=== PATIENT | female | born 1995 | race Caucasian/White ===

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

== ENCOUNTER 2018-07-08 05:34 | Emergency (ER) | payer OTHER ==
--- NOTE | 2018-07-08 05:52 | PDOC ---
History of Present Illness - General Stated Complaint: TOOTHACHE Time Seen by Provider: 07/08/18 05:38 History Source: Patient Exam Limitations: No Limitations - History of Present Illness Initial Comments: 07/08/18 05:46 Best Contact: [place]/mother [phone] PCP:Dr. bean Pmhx:Sz/last episode 2005 Pshx:2015/appendectomy Allergies: NKDA FH:0 Social Hx: Cigarettes/ 0 Alcohol/ 0 Drugs/0 LMP: 06/21/2017 23-year-old female presents to the ER with her mother complaining of a toothache to the left lower second molar/#183 hours. Patient took Tylenol with minimal relief. Patient denies facial pain, trismus, difficulty swallowing, difficulty speaking, drooling. Pain is exacerbated on touch and cold fluids. Past History - Past Medical History Allergies/Adverse Reactions: Allergies Allergy/AdvReac Type Severity Reaction Status Date / Time No Known Allergies Allergy Verified 10/14/16 22:56 Home Medications: Ambulatory Orders Carbamazepine 400 mg PO HS 03/15/14 Multivitamins [Multivit ([facility] Formulary)] 1 tab PO DAILY 03/15/14 Acetaminophen W/ Codeine #3 [Tylenol # 3 -] 1 tab PO Q6H #10 tablet MDD 3 Amoxicillin - [Amoxicillin 500mg Capsule -] 500 mg PO TID #21 capsule 07/08/18 Seizures: Yes - Surgical History Appendectomy: Yes - Immunization History Immunization Up to Date: Yes - Suicide/Smoking/Psychosocial Hx Smoking History: Never smoked Have you smoked in the past 12 months: No Hx Alcohol Use: No Drug/Substance Use Hx: No Substance Use Type: None Review of Systems - Review of Systems Able to Perform ROS?: Yes Comments:: 07/08/18 05:54 CONSTITUTIONAL: Absent: fever, chills, diaphoresis, generalized weakness, malaise, loss of appetite HEENT: LEFT LOWER MOLAR #18 TOOTHACHE Absent: rhinorrhea, nasal congestion, throat pain, throat swelling, difficulty swallowing, mouth swelling, ear pain, eye pain, visual Changes CARDIOVASCULAR: Absent: chest pain, loss of consciousness, palpitations, irregular heart rate, peripheral edema Is the patient limited Sami proficient: No *Physical Exam - Physical Exam Comments: 07/08/18 05:55 GENERAL: Well developed, well nourished. Awake and alert. No acute distress. HEENT: +left lower molar #18 pain on percussion Normocephalic, atraumatic. PERRLA, EOMI. No conjunctival pallor. Sclera are non- icteric. Moist mucous membranes. Oropharynx is clear. NECK: Supple. Full ROM. No JVD. Carotid pulses 2+ and symmetric, without bruits. No thyromegaly. No lymphadenopathy. SKIN: Warm and dry. Normal capillary refill. No rashes. No jaundice. *DC/Admit/Observation/Transfer Diagnosis at time of Disposition: Toothache - Discharge Dispostion Disposition: HOME Condition at time of disposition: Stable Decision to Admit order: No - Prescriptions Prescriptions: Acetaminophen W/ Codeine #3 [Tylenol # 3 -] 1 tab PO Q6H #10 tablet MDD 3 Amoxicillin - [Amoxicillin 500mg Capsule -] 500 mg PO TID #21 capsule - Referrals - Patient Instructions Printed Discharge Instructions: DI for Tooth Decay Additional Instructions: Take tylenol alternating with Motrin as needed for pain Follow up with your dentist this week Antibiotics as prescribed until completion Return to the ER for severe/persistent/worsening symptoms DO NOT TAKE TYLENOL WHEN YOU TAKE TYLENOL #3 Follow up with the dentist [facility] [phone] [place]: [phone] Tuesday through Tuesday: 4 PM to 9 PM Tuesday and Tuesday 9 AM to 5 PM - Post Discharge Activity
[2018-07-08 05:56] VITALS: BP 115/89; PULSE 74; TEMP 98.1; BMI 50.1
== END 2018-07-08 05:59 | disposition home or self-care (01) ==
LOC: JER 05:34
DX: K02.9 Dental caries, unspecified (principal); Z86.69 Personal history of other diseases of the nervous system and sense organs
CPT/HCPCS: 99281-25

== ENCOUNTER 2018-07-25 18:52 | Emergency (ER) | payer OTHER ==
--- NOTE | 2018-07-25 18:58 | PDOC ---
Rapid Medical Evaluation Time Seen by Provider: 07/25/18 18:57 Medical Evaluation: Allergies Allergy/AdvReac Type Severity Reaction Status Date / Time No Known Allergies Allergy Verified 07/25/18 18:54 07/25/18 18:57 Pt presents to the ED for two weeks of cough, runny nose, and ear pain. Exam: Lungs CTAB, (+) rhinorrhea Orders: Nothing Pt to proceed to ED for further evaluation Discharge Disposition - Diagnosis Cough - Referrals - Patient Instructions - Post Discharge Activity
[2018-07-25 19:05] VITALS: BP 107/65; PULSE 76; TEMP 97.9; BMI 23.6
--- NOTE | 2018-07-25 20:29 | PDOC ---
History of Present Illness - General Chief Complaint: Cold Symptoms Stated Complaint: COUGH Time Seen by Provider: 07/25/18 18:57 - History of Present Illness Initial Comments: 07/25/18 20:27 23-year-old female with cough times 1 week Past History - Past Medical History Allergies/Adverse Reactions: Allergies Allergy/AdvReac Type Severity Reaction Status Date / Time No Known Allergies Allergy Verified 07/25/18 18:54 Home Medications: Ambulatory Orders Carbamazepine 400 mg PO HS 03/15/14 Multivitamins [Multivit ([facility] Formulary)] 1 tab PO DAILY 03/15/14 Acetaminophen W/ Codeine #3 [Tylenol # 3 -] 1 tab PO Q6H #10 tablet MDD 3 Amoxicillin - [Amoxicillin 500mg Capsule -] 500 mg PO TID #21 capsule 07/08/18 COPD: No Seizures: Yes - Surgical History Appendectomy: Yes - Immunization History Immunization Up to Date: Yes - Suicide/Smoking/Psychosocial Hx Smoking History: Never smoked Have you smoked in the past 12 months: No Hx Alcohol Use: No Drug/Substance Use Hx: No Substance Use Type: None Review of Systems - Review of Systems Constitutional: No: Fever Respiratory: Yes: Cough *Physical Exam - Vital Signs Last Vital Signs Temp Pulse Resp BP Pulse Ox 97.9 F 76 16 107/65 99 07/25/18 18:54 07/25/18 18:54 07/25/18 18:54 07/25/18 18:54 07/25/18 18:54 - Physical Exam Comments: 07/25/18 20:28 HEAD: NC/AT EYES: Conjuntiva clear Ears: Canals and TM's normal NOSE: No d/c THROAT: Moist mucous membrances, oral pharanx clear, uvula midline NECK: Supple without adenopathy CARDIAC: S1 S2 LUNGS: CTA Full and Equal breath sounds ABDOMEN: Soft NT ND MS: Full ROM in all joints without edema NEUROLOGIC: No gross sensory or motor deficits, NVID SKIN: Normal color and temperature no lesions or rashes Moderate Sedation - Procedure Monitoring Vital Signs: Procedure Monitoring Vital Signs Temperature 97.9 F 07/25/18 18:54 Pulse Rate 76 07/25/18 18:54 Respiratory Rate 16 07/25/18 18:54 Blood Pressure 107/65 07/25/18 18:54 O2 Sat by Pulse Oximetry (%) 99 07/25/18 18:54 *DC/Admit/Observation/Transfer Diagnosis at time of Disposition: Cough, Upper respiratory infection - Discharge Dispostion Disposition: HOME Condition at time of disposition: Stable Decision to Admit order: No - Referrals Referrals: ON STAFF,NOT [Primary Care Provider] - - Patient Instructions Printed Discharge Instructions: DI for Viral Upper Respiratory Infection -- Adult Additional Instructions: Continue with Robitussin-DM as directed. Return to the emergency room should symptoms worsen or go unresolved. Follow-up with your primary care provider in one to 2 days for further evaluation and treatment options. - Post Discharge Activity
== END 2018-07-25 20:29 | disposition home or self-care (01) ==
LOC: JER 18:52 → JERFT 18:52
DX: J06.9 Acute upper respiratory infection, unspecified (principal); B97.89 Other viral agents as the cause of diseases classified elsewhere
CPT/HCPCS: 99281-25

== ENCOUNTER 2020-05-07 11:32 | Emergency (ER) | payer OTHER ==
[2020-05-07 11:48] VITALS: BP 107/60; PULSE 80; TEMP 98; BMI 24.5
== END 2020-05-07 13:21 | disposition home or self-care (01) ==
LOC: JERFT 11:32
DX: J34.89 Other specified disorders of nose and nasal sinuses (principal)
CPT/HCPCS: 99282-25

== ENCOUNTER 2020-08-25 11:19 | Emergency (ER) | payer OTHER ==
[2020-08-25 11:29] VITALS: BP 104/56; PULSE 82; TEMP 98.2; BMI 22.6
== END 2020-08-25 12:18 | disposition home or self-care (01) ==
LOC: JERFT 11:19
DX: H10.12 Acute atopic conjunctivitis, left eye (principal)
CPT/HCPCS: 99283-25

== ENCOUNTER 2022-04-22 20:25 | Emergency (ER) | payer OTHER ==
[2022-04-22 20:34] VITALS: BP 114/79; PULSE 107; RESP 18; TEMP 98.7; BMI 23.2
== END 2022-04-22 23:08 | disposition home or self-care (01) ==
LOC: JER 20:25
DX: B34.9 Viral infection, unspecified (principal)
CPT/HCPCS: 0241U-QW; 99283-25

== ENCOUNTER 2022-04-26 01:04 | Inpatient (IN) | payer OTHER ==
[2022-04-26] MEDS: ALBUTEROL SO4 2.5/IPRATROPIUM 0.5 INH SOL 3 ML VIAL.NEB. NEB SCH ×4 (03:00→03:45)
[2022-04-26 03:03] LABS: VENOUS BASE EXCESS 1.1 mmol/L (-2-2); VENOUS O2 SATURATION 61.7 % (70-80); VENOUS PCO2 45.2 mmHg (38-52); VENOUS PH 7.387 (7.310-7.410)
[2022-04-26 03:16] LABS: CALCIUM 8.8 mg/dL (8.5-10.1)
[2022-04-26 03:17] LABS: ALBUMIN 3.5 g/dl (3.4-5.0); BLOOD UREA NITROGEN 4.8 mg/dL (7-18)
[2022-04-26 03:18] LABS: BASO % 0.7 % (0-2.0); EOS % 4.7 % (0-4.5); HEMATOCRIT 38.8 % (32.4-45.2); HEMOGLOBIN 13.6 GM/dL (10.7-15.3); LYMPH % 14.5 % (8-40); MCH 32.9 pg (25.7-33.7); MCHC 35.1 g/dl (32.0-36.0); MEAN CELL VOLUME 93.8 fl (80-96); MEAN PLT VOLUME 7.8 fl (7.5-11.1); MONO % 12.9 % (3.8-10.2); NEUT % 67.2 % (42.8-82.8); PLATELET COUNT 375 10^3/uL (134-434); RBC 4.14 M/mm3 (3.60-5.2); RDW 12.9 % (11.6-15.6); WHITE BLOOD COUNT 7.3 K/mm3 (4.0-10.0)
[2022-04-26 03:20] LABS: CREATININE 0.5 mg/dL (0.55-1.3)
[2022-04-26 03:22] LABS: BILIRUBIN,TOTAL 0.2 mg/dL (0.2-1); TOT PROT 7.9 g/dl (6.4-8.2)
[2022-04-26] MEDS ORDERED: ACETAMINOPHEN 1000 MG/100 ML BAG IVPB ONE (04:04)
[2022-04-26] MEDS ORDERED: ACETAMINOPHEN INJECTION 100 ML IVPB ONE (04:05)
[2022-04-26] MEDS ORDERED: AZITHROMYCIN IVPB 500 MG in DEXTROSE 5%-WATER - 250 ML IVPB ONE (04:17)
[2022-04-26] MEDS ORDERED: CEFTRIAXONE 1,000 MG in DEXTROSE 5%-WATER - 50 ML IVPB ONE (04:17)
[2022-04-26] MEDS ORDERED: CEFTRIAXONE 1 GM/50 ML BAG ONE (04:24)
[2022-04-26] MEDS ORDERED: AZITHROMYCIN IVPB 500 MG/250 ML BAG IVPB ONE (05:18)
[2022-04-26] MEDS ORDERED: ONDANSETRON 4 MG/2 ML VIAL ONE (05:48)
[2022-04-26] MEDS ORDERED: ONDANSETRON 4 MG/2 ML VIAL IVPUSH ONE (05:52)
[2022-04-26] MEDS ORDERED: guaiFENesin 600 MG TABLET.ER (FP) PO PRN (06:17)
[2022-04-26 09:17] LABS: LACTIC ACID 2.9 mmol/L (0.4-2.0)
[2022-04-26] MEDS ORDERED: CEFTRIAXONE 1 GM in DEXTROSE 5%-WATER - 50 ML IVPB SCH (10:00)
[2022-04-26] MEDS: AZITHROMYCIN IVPB 500 MG/250 ML BAG IVPB SCH (10:38)
[2022-04-26] MEDS ORDERED: carBAMazepine 200 MG TABLET ONE (10:44)
[2022-04-26] MEDS ORDERED: ENOXAPARIN NA (PORCINE) 40 MG/0.4 ML DISP.SYRIN SQ ONE (10:45)
[2022-04-26] MEDS ORDERED: FOLIC ACID 1 MG TABLET (FP) ONE (10:45)
[2022-04-26] MEDS ORDERED: MULTIVITAMINS (DAILY MVI) TABLET (FP) ONE (10:45)
[2022-04-26] MEDS: MULTIVITAMINS (DAILY MVI) TABLET (FP) PO SCH (11:19)
[2022-04-26] MEDS: FOLIC ACID 1 MG TABLET (FP) PO SCH (11:19)
[2022-04-26] MEDS: ENOXAPARIN NA (PORCINE) 40 MG/0.4 ML DISP.SYRIN SQ SCH (11:19)
[2022-04-26] MEDS: carBAMazepine 100 MG TAB.CHEW PO SCH ×2 (11:40→21:25)
[2022-04-26] MEDS ORDERED: SODIUM CHLORIDE 1,000 ML IV STA (12:11)
[2022-04-26 15:28] LABS: EPI CELLS 14 /uL (0-25.1); HYALINE CASTS 0 /uL (0-3.1); URINE APPEARANCE CLOUDY; URINE BACTERIA 3003 /uL (0-1359); URINE BILIRUBIN NEGATIVE (NEGATIVE); URINE COLOR YELLOW; URINE GLUCOSE (UA) NEGATIVE (NEGATIVE); URINE KETONE NEGATIVE (NEGATIVE); URINE LEUK ESTERASE 3+ (NEGATIVE); URINE NITRITE NEGATIVE (NEGATIVE); URINE PROTEIN NEGATIVE (NEGATIVE); URINE RBC 5 /uL (0-23.9); URINE UROBILINOGEN 0.2 mg/dL (0.2-1.0); URINE WBC 42 /uL (0-25.8)
[2022-04-26 15:59] VITALS: BMI 25.4
[2022-04-26] MEDS: SODIUM CHLORIDE 1,000 ML IV SCH (16:24)
[2022-04-26] MEDS ORDERED: carBAMazepine 100 MG TAB.CHEW PO SCH (22:00)
[2022-04-27] MEDS: SODIUM CHLORIDE 1,000 ML IV SCH (03:29)
[2022-04-27] MEDS: FOLIC ACID 1 MG TABLET (FP) PO SCH (09:08)
[2022-04-27] MEDS: AZITHROMYCIN IVPB 500 MG/250 ML BAG IVPB SCH (09:08)
[2022-04-27] MEDS: MULTIVITAMINS (DAILY MVI) TABLET (FP) PO SCH (09:09)
[2022-04-27] MEDS: ENOXAPARIN NA (PORCINE) 40 MG/0.4 ML DISP.SYRIN SQ SCH (09:18)
[2022-04-27] MEDS: carBAMazepine 100 MG TAB.CHEW PO SCH ×2 (09:19→21:12)
[2022-04-27] MEDS ORDERED: CEFTRIAXONE 1 GM in DEXTROSE 5%-WATER - 50 ML IVPB SCH (09:53)
[2022-04-27 11:07] LABS: BASO % 0.7 % (0-2.0); EOS % 3.1 % (0-4.5); HEMATOCRIT 34.1 % (32.4-45.2); LYMPH % 16.2 % (8-40); MCH 35.1 pg (25.7-33.7); MCHC 35.2 g/dl (32.0-36.0); MEAN CELL VOLUME 99.6 fl (80-96); MEAN PLT VOLUME 8.1 fl (7.5-11.1); MONO % 11.9 % (3.8-10.2); NEUT % 68.1 % (42.8-82.8); PLATELET COUNT 354 10^3/uL (134-434); RBC 3.43 M/mm3 (3.60-5.2); RDW 12.8 % (11.6-15.6); WHITE BLOOD COUNT 5.5 K/mm3 (4.0-10.0)
[2022-04-27 11:37] LABS: CALCIUM 8.3 mg/dL (8.5-10.1)
[2022-04-27 11:38] LABS: BLOOD UREA NITROGEN 5.4 mg/dL (7-18)
[2022-04-27 11:40] LABS: PHOSPHOROUS 2.4 mg/dL (2.5-4.9)
[2022-04-27 11:42] LABS: TOT PROT 6.7 g/dl (6.4-8.2)
[2022-04-27 11:44] LABS: BILIRUBIN,TOTAL 0.4 mg/dL (0.2-1); CREATININE 0.5 mg/dL (0.55-1.3)
[2022-04-27] MEDS ORDERED: ONDANSETRON 4 MG/2 ML VIAL IVPUSH PRN (11:48)
[2022-04-27] MEDS: guaiFENesin/D-METHORPHAN HB 10 ML UNIT-DOSE CUPS PO PRN ×2 (12:11→17:32)
[2022-04-27] MEDS ORDERED: SODIUM CHLORIDE 1,000 ML IV SCH (12:51)
[2022-04-28] MEDS: guaiFENesin/D-METHORPHAN HB 10 ML UNIT-DOSE CUPS PO PRN (05:45)
[2022-04-28 10:45] LABS: CALCIUM 8.7 mg/dL (8.5-10.1)
[2022-04-28 10:48] LABS: CREATININE 0.6 mg/dL (0.55-1.3); PHOSPHOROUS 3.3 mg/dL (2.5-4.9)
[2022-04-28 10:57] LABS: BASO % 0.9 % (0-2.0); EOS % 2.6 % (0-4.5); HEMATOCRIT 38.4 % (32.4-45.2); LYMPH % 15.6 % (8-40); MCH 30.9 pg (25.7-33.7); MCHC 33.8 g/dl (32.0-36.0); MEAN CELL VOLUME 91.6 fl (80-96); MEAN PLT VOLUME 7.9 fl (7.5-11.1); NEUT % 71.9 % (42.8-82.8); PLATELET COUNT 396 10^3/uL (134-434); RBC 4.19 M/mm3 (3.60-5.2); RDW 12.8 % (11.6-15.6); WHITE BLOOD COUNT 6.5 K/mm3 (4.0-10.0)
[2022-04-28] MEDS: FOLIC ACID 1 MG TABLET (FP) PO SCH (11:09)
[2022-04-28] MEDS: ENOXAPARIN NA (PORCINE) 40 MG/0.4 ML DISP.SYRIN SQ SCH (11:09)
[2022-04-28] MEDS: carBAMazepine 100 MG TAB.CHEW PO SCH (11:09)
[2022-04-28] MEDS: MULTIVITAMINS (DAILY MVI) TABLET (FP) PO SCH (11:09)
[2022-04-28] MEDS ORDERED: ALBUTEROL SO4 0.083% IH SOL 2.5 MG/3 ML VIAL.NEB. NEB ONE (13:11)
[2022-04-28 14:57] VITALS: BP 108/67; RESP 17; TEMP 98.5
[2022-04-28 15:04] VITALS: PULSE 118
== END 2022-04-28 17:03 | disposition home or self-care (01) | DRG 139 ==
LOC: JER 01:04 → JERBED 04:17 → J5S 15:39
PROVIDERS: ADMIT Internal Medicine; ATTEND Internal Medicine
DX: J12.9 Viral pneumonia, unspecified (principal); R56.9 Unspecified convulsions; R62.50 Unspecified lack of expected normal physiological development in childhood
CPT/HCPCS: 0241U-QW; 36415; 71045-TC-FY; 80048; 80053; 81003; 82803; 83605; 83735; 84100; 85025; 87633; 93005; 93010; 94640; 94761; 99285-25

== ENCOUNTER 2023-03-24 21:01 | Emergency (ER) | payer OTHER ==
[2023-03-24 21:15] VITALS: BP 101/64; PULSE 62; RESP 18; TEMP 98.2; BMI 23.6
== END 2023-03-24 22:55 | disposition home or self-care (01) ==
LOC: JER 21:01 → JERFT 21:01
DX: J06.9 Acute upper respiratory infection, unspecified (principal); R07.0 Pain in throat; R05.9 Cough, unspecified; Z20.822 Contact with and (suspected) exposure to COVID-19
CPT/HCPCS: 0241U-QW; 87070; 87651; 99283-25

== ENCOUNTER 2023-09-07 21:24 | Emergency (ER) | payer OTHER ==
[2023-09-07 21:41] VITALS: BP 106/76; PULSE 90; RESP 14; TEMP 97.5; BMI 22.3
[2023-09-07] MEDS ORDERED: ONDANSETRON 4 MG/2 ML VIAL ONE (23:31)
[2023-09-07] MEDS ORDERED: FAMOTIDINE 20 MG/50 ML IVPB 20 MG/50 ML MG IVPB ONE (23:31)
[2023-09-08] MEDS: ONDANSETRON 4 MG/2 ML VIAL IVPUSH ONE (00:07)
[2023-09-08] MEDS: SODIUM CHLORIDE 0.9% 500 ML INFUS.BAG IV ONE (00:07)
[2023-09-08] MEDS: FAMOTIDINE 20 MG/50 ML IVPB 20 MG/50 ML MG IVPB ONE (00:07)
[2023-09-08 00:32] LABS: BASO % 0.1 % (0-2.0); EOS % 0.3 % (0-4.5); HEMATOCRIT 42.9 % (32.4-45.2); HEMOGLOBIN 14.6 GM/dL (10.7-15.3); LYMPH % 6.2 % (8-40); MEAN PLT VOLUME 8.1 fl (7.5-11.1); MONO % 6.6 % (3.8-10.2); NEUT % 86.8 % (42.8-82.8); PLATELET COUNT 430 10^3/uL (134-434); RBC 4.71 M/mm3 (3.60-5.2); RDW 12.9 % (11.6-15.6); WHITE BLOOD COUNT 16.4 K/mm3 (4.0-10.0)
[2023-09-08 00:53] LABS: POTASSIUM 3.9 mmol/L (3.5-5.1)
[2023-09-08 00:56] LABS: BLOOD UREA NITROGEN 7.4 mg/dL (7-18)
[2023-09-08 00:59] LABS: CREATININE 0.8 mg/dL (0.55-1.3)
[2023-09-08 01:00] LABS: BILIRUBIN,TOTAL 0.3 mg/dL (0.2-1)
[2023-09-08 01:01] LABS: TOT PROT 8.7 g/dl (6.4-8.2)
[2023-09-08 02:21] LABS: EPI CELLS 3 /uL (0-25.1); HYALINE CASTS 0 /uL (0-3.1); URINE APPEARANCE CLEAR; URINE BACTERIA 423 /uL (0-1359); URINE BILIRUBIN NEGATIVE (NEGATIVE); URINE COLOR YELLOW; URINE GLUCOSE (UA) NEGATIVE (NEGATIVE); URINE KETONE NEGATIVE (NEGATIVE); URINE LEUK ESTERASE TRACE (NEGATIVE); URINE NITRITE NEGATIVE (NEGATIVE); URINE PROTEIN NEGATIVE (NEGATIVE); URINE RBC 16 /uL (0-23.9); URINE UROBILINOGEN 0.2 mg/dL (0.2-1.0); URINE WBC 7 /uL (0-25.8)
[2023-09-08 02:29] LABS: HCG,QUALITATIVE URINE Negative
== END 2023-09-08 03:05 | disposition home or self-care (01) ==
LOC: JER 21:24
PROC: 3E033GC Introduction of Other Therapeutic Substance into Peripheral Vein, Percutaneous Approach (ICD-10-PCS; principal; 2023-09-07)
PROC: 3E033GC Introduction of Other Therapeutic Substance into Peripheral Vein, Percutaneous Approach (ICD-10-PCS; 2023-09-07)
DX: R11.2 Nausea with vomiting, unspecified (principal); R19.7 Diarrhea, unspecified; R10.13 Epigastric pain
CPT/HCPCS: 36415; 80053; 80156; 81003; 83690; 84703; 85025; 87086; 87186; 99284-25